=== PATIENT | female | born 1960 | race Caucasian/White ===

== ENCOUNTER → 2018-01-02 | Outpatient (CLI) | payer OTHER ==
[2018-01-02 19:18] LABS: Basophils % (A) 0 %; Eosinophils # (A) 0.1 k/uL (0-0.7); Eosinophils % (A) 1 %; HCT 41.8 % (34.0-46.0); HGB 13.2 gm/dL (11.4-16.0); Lymphocytes # (A) 1.3 k/uL (1.0-4.8); Lymphocytes % (A) 13 %; MCH 31.1 pg (25.0-35.0); MCHC 31.4 g/dL (31.0-37.0); MCV 98.8 fL (80.0-100.0); Mean Platelet Volume 6.9; Monocytes # (A) 0.4 k/uL (0-1.0); Monocytes % (A) 4 %; Neutrophils # (A) 7.4 k/uL (1.3-7.7); Neutrophils % (A) 80 %; Platelet Count 432 k/uL (150-450); RBC 4.23 m/uL (3.80-5.40); RDW 13.5 % (11.5-15.5); WBC 9.3 k/uL (3.8-10.6)
[2018-01-02 23:02] LABS: ALT 28 U/L (9-52); AST 20 U/L (14-36); Alkaline Phosphatase 102 U/L (38-126); Amylase 61 U/L (30-110); Anion Gap 10 mmol/L; Blood Urea Nitrogen 18 mg/dL (7-17); Calcium 9.6 mg/dL (8.4-10.2); Carbon Dioxide 31 mmol/L (22-30); Chloride 96 mmol/L (98-107); Cholesterol 250 mg/dL (<200); Glucose 192 mg/dL (74-99); Lipase 151 U/L (23-300); Potassium 4.4 mmol/L (3.5-5.1); Sodium 137 mmol/L (137-145); Theophylline 6.8 ug/mL; Total Bilirubin 0.3 mg/dL (0.2-1.3); Total Protein 6.9 g/dL (6.3-8.2); Triglycerides 260 mg/dL (<150)
[2018-01-02 23:09] LABS: HDL Cholesterol 130 mg/dL (40-60); LDL Cholesterol,Calculated 68 mg/dL (0-99)
[2018-01-02 23:16] LABS: T4, Free (Free Thyroxine) 0.81 ng/dL (0.78-2.19)
[2018-01-03 19:09] LABS: Hemoglobin A1C 7.3 % (4.0-6.0)
== END | disposition home or self-care (01) ==
LOC: MMGSC 15:08
PROVIDERS: ATTEND Family Medicine
DX: J44.9 Chronic obstructive pulmonary disease, unspecified (principal); R10.9 Unspecified abdominal pain; R00.0 Tachycardia, unspecified; R73.09 Other abnormal glucose; Z86.79 Personal history of other diseases of the circulatory system
CPT/HCPCS: 36415; 80053; 80061; 80198; 82150; 83036; 83690; 84439; 84443; 85025; 99204

== ENCOUNTER → 2018-09-19 | Outpatient (CLI) | payer OTHER ==
--- NOTE | 2018-09-19 11:00 | CT ---
EXAMINATION TYPE: CT chest wo con DATE OF EXAM: 09/19/2018 COMPARISON: None HISTORY: Pulmonary Nodule CT DLP: 131 mGycm, Automated exposure control for dose reduction was used. CONTRAST: None TECHNIQUE: Axial images were obtained at 5 mm thick sections. Reconstructed images are reviewed on [employer] computer in the coronal plane. FINDINGS: Portion of the thyroid visualized is normal. Bilateral apical thickening is present. Emphysematous changes are present. Multiple small peripheral nodules in the range of 2 mm each are present along the anterior peripheral margins. There is a area of increased density measuring approximately 0.6 cm in the periphery of the left upper lobe. Series 4 image 15. Some calcified small nodules are present scattered bilaterally. No enlarged mediastinal or hilar adenopathy is evident. The ascending aorta diameter at the level o f the main pulmonary artery is 2.7 cm. The main pulmonary artery diameter at the bifurcation is 2.2 cm. Coronary artery calcification is present. Limited CT sections are obtained through the upper abdomen. Abdomen is essentially unremarkable. IMPRESSIONS: 1. 0.6 cm area of pneumonitis within the periphery of the left upper lung field. Follow-up exam in 6 months is recommended. 2. Multiple 2 mm peripheral nodules bilaterally. Scattered bilateral calcified nodules are also prese nt.
== END ==
LOC: RADCTMAIN 08:15
PROVIDERS: ATTEND Internal Medicine Pulmonary Disease
DX: J18.9 Pneumonia, unspecified organism (principal); R91.8 Other nonspecific abnormal finding of lung field
CPT/HCPCS: 71250

== ENCOUNTER → 2019-04-27 | Outpatient (CLI) | payer OTHER ==
--- NOTE | 2019-04-27 12:16 | CT ---
EXAMINATION TYPE: CT chest wo con DATE OF EXAM: 04/27/2019 COMPARISON: 09/19/2018 HISTORY: Follow up scan per patient CT DLP: 152 mGycm. Automated Exposure Control for Dose Reduction was Utilized. TECHNIQUE: CT scan of the thorax is performed without IV contrast. FINDINGS: LUNGS: Bilateral apical thickening is present. Emphysematous changes are present. Multiple small nam pheral nodules in the range of 2 mm each are present along the anterior peripheral margins. There is a area of increased density measuring approximately 0.6 cm in the periphery of the left upper lobe. S eries 4 image 15. Some calcified small nodules are present scattered bilaterally. . MEDIASTINUM: Lack of IV contrast is noted to limit evaluation for mediastinal and especially hilar ad enopathy. There are no definitive greater than 1 cm hilar or mediastinal lymph nodes. Heart is mildly prominent and there is a trace of pericardial fluid. The ascending aorta diameter at the level of th e main pulmonary artery is 2.7 cm. The main pulmonary artery diameter at the bifurcation is 2.2 cm. C oronary artery calcification is present. OTHER: Multilevel severe degenerative disc disease with vacuum disc. Chronic appearing endplate compr ession deformities are seen within the lower thoracic spine. Chronic appearing rib cage deformities o n the left are noted. IMPRESSION: 1. There are numerous subcentimeter bilateral pulmonary nodules large number of which are calcified. Findings stable. Most likely etiology is calcified and noncalcified granulomas. Confirmation of stabi lity over 2 years recommended. 2. Diffuse emphysematous changes correlate for chronic obstructive pulmonary disease. 3. Stable apical pleural thickening.
== END | disposition home or self-care (01) ==
LOC: RADCTMAIN 11:43
PROVIDERS: ATTEND Internal Medicine
DX: J43.9 Emphysema, unspecified (principal); J92.9 Pleural plaque without asbestos; R91.8 Other nonspecific abnormal finding of lung field
CPT/HCPCS: 71250

== ENCOUNTER → 2019-07-22 | Outpatient (CLI) | payer OTHER ==
--- NOTE | 2019-07-23 04:20 | FL ---
EXAMINATION: Upper GI with small bowel follow through DATE: 07/22/2019 CLINICAL INDICATION: 59-year-old female epigastric pain with nausea and vomiting for one year. Prior history of gastric ulcer. Patient also with history of partial colonic resection with colostomy and r eversal and 2 prior bowel obstructions. COMPARISON: None Total Fluoroscopy Time: 3 minutes 25 seconds Total images: 62 FINDINGS: The esophagus has a normal course, caliber, and mucosa. There are mildly blunted secondary stripping waves allowing for slightly prolonged pooling of contras t when the patient is supine. There is a small hiatal hernia seen. There is no gastroesophageal reflux identified. There is mild gastric fundal fold thickening. Otherwise, the stomach and duodenum are free of any per sistent filling defect and the remainder of the stomach and duodenum demonstrates a normal mucosal pa ttern. No ulcer is identified. Following administration of barium, serial films were carried out to 30 minutes. Barium is seen to re ach the colon. Loops of jejunum and ileum are compressed and examined under fluoroscopy. The small alicia wel loops have a normal-caliber. Mucosal pattern is within normal limits. No intrinsic or extrinsic p rocess is suspected. IMPRESSION: 1. Mild dysmotility with blunted secondary stripping waves allowing for prolonged pooling of contrast in the esophagus when the patient is supine. 2. Small hiatal hernia. No gastroesophageal reflux is seen during the course of the exam. 3. Mild gastric fundal fold thickening may reflect mild gastritis. No discrete ulcer is seen. 4. Borderline fast small bowel transit time of 30 minutes. Otherwise, normal small bowel examination
== END | disposition home or self-care (01) ==
LOC: RADFLMAIN 08:37
PROVIDERS: ATTEND Internal Medicine Gastroenterology
DX: K22.4 Dyskinesia of esophagus (principal); K44.9 Diaphragmatic hernia without obstruction or gangrene; K31.89 Other diseases of stomach and duodenum
CPT/HCPCS: 74249

== ENCOUNTER 2020-01-12 10:58 | Inpatient (IN) | payer OTHER ==
[2020-01-12] MEDS ORDERED: methylPREDNISolone SOD SUCCI 125 MG/2 ML VIAL IV STA (11:27)
[2020-01-12] MEDS ORDERED: IPRATROPIUM-ALBUTEROL 3 ML NEB INHALATION STA (11:27)
[2020-01-12 12:04] LABS: Partial Thromboplastin Time 25.6 sec (22.0-30.0); Prothrombin Time 10.2 sec (9.0-12.0)
[2020-01-12 12:06] LABS: ALT 10 U/L (4-34); AST 18 U/L (14-36); African American GFR (CKD) >90 (>60 ml/min/1.73 sqM); Albumin 3.5 g/dL (3.5-5.0); Alkaline Phosphatase 54 U/L (38-126); Blood Urea Nitrogen 13 mg/dL (7-17); Calcium 8.6 mg/dL (8.4-10.2); Chloride 92 mmol/L (98-107); Glucose 118 mg/dL (74-99); Magnesium 1.6 mg/dL (1.6-2.3); Non-African American GFR(CKD) >90 (>60 ml/min/1.73 sqM); Potassium 4.2 mmol/L (3.5-5.1); Sodium 138 mmol/L (137-145); Total Bilirubin 0.6 mg/dL (0.2-1.3)
[2020-01-12 12:10] LABS: HCT 33.9 % (34.0-46.0); HGB 10.1 gm/dL (11.4-16.0); Hypochromasia Marked; MCH 31.3 pg (25.0-35.0); MCHC 29.9 g/dL (31.0-37.0); MCV 104.7 fL (80.0-100.0); Macrocytosis Slight; Platelet Count 319 k/uL (150-450); RBC 3.24 m/uL (3.80-5.40); RDW 12.3 % (11.5-15.5); WBC 5.2 k/uL (3.8-10.6)
[2020-01-12 12:12] LABS: Anion Gap 8 mmol/L
[2020-01-12] MEDS ORDERED: traMADol 50 MG TAB PO STA (12:15)
[2020-01-12 12:16] LABS: VBG PH 7.41 (7.31-7.41)
[2020-01-12 12:17] LABS: Carbon Dioxide 38 mmol/L (22-30)
[2020-01-12 12:36] LABS: Band Neutrophils % 1 %; Lymphocytes # (M) 0.78 k/uL (1.0-4.8); Monocytes # (M) 0.42 k/uL (0-1.0); Neutrophils % (M) 74 %; Nucleated Red Blood Cells 0 /100 WBC (0-0); Total Cells Counted 100
[2020-01-12 12:37] LABS: Poikilocytosis (M) Present
--- NOTE | 2020-01-12 12:41 | ED ---
General Adult HPI - General Chief complaint: Shortness of Breath Stated complaint: MARLA Time Seen by Provider: 01/12/20 11:13 Source: patient, EMS, RN notes reviewed Mode of arrival: EMS Limitations: no limitations - History of Present Illness Initial comments: 59-year-old female with a past medical history of COPD on home oxygen presents to the emergency department for a chief complaint of shortness of breath. Patient states yesterday she started to develop increased shortness of breath. Patient states that usually she is on 2 L when she is resting at home and 4 L when she is moving. Patient also admits to a slight cough over the past few days. She denies any chest pain. She denies fevers or chills. Patient has no other complaints at this time including shortness of breath, chest pain, abdominal pain, nausea or vomiting, headache, or visual changes. - Related Data Allergies Allergy/AdvReac Type Severity Reaction Status Date / Time No Known Allergies Allergy Verified 01/12/20 11:00 Review of Systems ROS Statement: Those systems with pertinent positive or pertinent negative responses have been documented in the HPI. ROS Other: All systems not noted in ROS Statement are negative. Past Medical History Past Medical History: COPD History of Any Multi-Drug Resistant Organisms: None Reported Additional Past Surgical History / Comment(s): "abdominal surgeries." Past Psychological History: Anxiety Smoking Status: Never smoker Past Alcohol Use History: None Reported Past Drug Use History: None Reported General Exam Limitations: no limitations General appearance: alert, in no apparent distress Head exam: Present: atraumatic, normocephalic, normal inspection Eye exam: Present: normal appearance, PERRL, EOMI. Absent: scleral icterus, conjunctival injection, periorbital swelling ENT exam: Present: normal exam, mucous membranes moist Neck exam: Present: normal inspection, full ROM. Absent: tenderness, meningismus, lymphadenopathy Respiratory exam: Present: wheezes, decreased breath sounds. Absent: respiratory distress, rales, rhonchi, stridor Cardiovascular Exam: Present: regular rate, normal rhythm, normal heart sounds. Absent: systolic murmur, diastolic murmur, rubs, gallop, clicks Neurological exam: Present: alert Psychiatric exam: Present: normal affect, normal mood Course Vital Signs 01/12/20 01/12/20 01/12/20 11:01 11:15 11:55 Temperature 97.2 F L Pulse Rate 102 H 100 Respiratory 18 Rate Blood Pressure 148/67 O2 Sat by Pulse 100 98 78 L Oximetry 01/12/20 01/12/20 01/12/20 12:00 12:10 12:20 Temperature Pulse Rate 102 H 105 H Respiratory 20 Rate Blood Pressure 129/91 O2 Sat by Pulse 98 99 Oximetry EKG Findings - EKG Comments: EKG Findings:: Normal sinus rhythm, ventricular rate 100, NC interval 140, QTC 456 Medical Decision Making - Medical Decision Making Vitals are stable presentation. Patient is 100% on 4 L although it seems she is supposed to be on 2 L at home at rest. She does have some minimal tachycardia likely related to shortness of breath. Lung sounds do sound diminished with wheezing bilaterally. Patient was on 2 L of oxygen and apparently desatted to 78% so she was increased back to 4 L. CBC unremarkable. White blood cell count is normal. CMP does show high CO2 which is likely chronic but increased compared to previous labs. Influenza is negative. Chest x-ray shows COPD with some subcentimeter pulmonary nodules most likely on the basis of granuloma. Patient will be admitted for acute hypoxic respiratory failure secondary to COPD exacerbation. - Lab Data Result diagrams: 01/12/20 11:07 01/12/20 11:07 Lab Results 01/12/20 01/12/20 01/12/20 Range/Units 11:07 11:07 11:07 WBC 5.2 (3.8-10.6) k/uL RBC 3.24 L (3.80-5.40) m/uL Hgb 10.1 L (11.4-16.0) gm/dL Hct 33.9 L (34.0-46.0) % MCV 104.7 H (80.0-100.0) fL MCH 31.3 (25.0-35.0) pg MCHC 29.9 L (31.0-37.0) g/dL RDW 12.3 (11.5-15.5) % Plt Count 319 (150-450) k/uL Neutrophils % (Manual) 74 % Band Neutrophils % 1 % Lymphocytes % (Manual) 15 % Monocytes % (Manual) 8 % Eosinophils % (Manual) 2 % Neutrophils # (Manual) 3.90 (1.3-7.7) k/uL Lymphocytes # (Manual) 0.78 L (1.0-4.8) k/uL Monocytes # (Manual) 0.42 (0-1.0) k/uL Eosinophils # (Manual) 0.10 (0-0.7) k/uL Nucleated RBCs 0 (0-0) /100 WBC Manual Slide Review Performed Hypochromasia Marked Poikilocytosis (manual Present Macrocytosis Slight PT 10.2 (9.0-12.0) sec INR 1.0 (<1.2) APTT 25.6 (22.0-30.0) sec VBG pH (7.31-7.41) VBG pCO2 (37-51) mmHg VBG HCO3 (24-28) mmol/L Sodium 138 (137-145) mmol/L Potassium 4.2 (3.5-5.1) mmol/L Chloride 92 L (98-107) mmol/L Carbon Dioxide 38 H (22-30) mmol/L Anion Gap 8 mmol/L BUN 13 (7-17) mg/dL Creatinine 0.35 L (0.52-1.04) mg/dL Est GFR (CKD-EPI)AfAm >90 (>60 ml/min/1.73 sqM) Est GFR (CKD-EPI)NonAf >90 (>60 ml/min/1.73 sqM) Glucose 118 H (74-99) mg/dL Calcium 8.6 (8.4-10.2) mg/dL Magnesium 1.6 (1.6-2.3) mg/dL Total Bilirubin 0.6 (0.2-1.3) mg/dL AST 18 (14-36) U/L ALT 10 (4-34) U/L Alkaline Phosphatase 54 (38-126) U/L Troponin I (0.000-0.034) ng/mL Total Protein 6.0 L (6.3-8.2) g/dL Albumin 3.5 (3.5-5.0) g/dL Influenza Type A RNA (Not Detectd) Influenza Type B (PCR) (Not Detectd) 01/12/20 01/12/20 01/12/20 Range/Units 11:07 11:07 12:06 WBC (3.8-10.6) k/uL RBC (3.80-5.40) m/uL Hgb (11.4-16.0) gm/dL Hct (34.0-46.0) % MCV (80.0-100.0) fL MCH (25.0-35.0) pg MCHC (31.0-37.0) g/dL RDW (11.5-15.5) % Plt Count (150-450) k/uL Neutrophils % (Manual) % Band Neutrophils % % Lymphocytes % (Manual) % Monocytes % (Manual) % Eosinophils % (Manual) % Neutrophils # (Manual) (1.3-7.7) k/uL Lymphocytes # (Manual) (1.0-4.8) k/uL Monocytes # (Manual) (0-1.0) k/uL Eosinophils # (Manual) (0-0.7) k/uL Nucleated RBCs (0-0) /100 WBC Manual Slide Review Hypochromasia Poikilocytosis (manual Macrocytosis PT (9.0-12.0) sec INR (<1.2) APTT (22.0-30.0) sec VBG pH 7.41 (7.31-7.41) VBG pCO2 63 H (37-51) mmHg VBG HCO3 39 H (24-28) mmol/L Sodium (137-145) mmol/L Potassium (3.5-5.1) mmol/L Chloride (98-107) mmol/L Carbon Dioxide (22-30) mmol/L Anion Gap mmol/L BUN (7-17) mg/dL Creatinine (0.52-1.04) mg/dL Est GFR (CKD-EPI)AfAm (>60 ml/min/1.73 sqM) Est GFR (CKD-EPI)NonAf (>60 ml/min/1.73 sqM) Glucose (74-99) mg/dL Calcium (8.4-10.2) mg/dL Magnesium (1.6-2.3) mg/dL Total Bilirubin (0.2-1.3) mg/dL AST (14-36) U/L ALT (4-34) U/L Alkaline Phosphatase (38-126) U/L Troponin I <0.012 (0.000-0.034) ng/mL Total Protein (6.3-8.2) g/dL Albumin (3.5-5.0) g/dL Influenza Type A RNA Not Detected (Not Detectd) Influenza Type B (PCR) Not Detected (Not Detectd) Disposition Clinical Impression: COPD exacerbation, Acute respiratory failure with hypoxia Disposition: ADMITTED IP TO THIS HOSP Condition: Fair Is patient prescribed a controlled substance at d/c from ED?: No Referrals: Khanh Caban MD [Primary Care Provider] - 1-2 days Time of Disposition: 13:26
--- NOTE | 2020-01-12 13:06 | XR ---
EXAMINATION TYPE: XR chest 2V DATE OF EXAM: 01/12/2020 COMPARISON: NONE TECHNIQUE: PA and lateral views submitted. HISTORY: Difficulty breathing FINDINGS: The lungs are clear and there is no pneumothorax, pleural effusion, or focal pneumonia. Hyperinflati on suggests COPD. Degenerative changes spine. There are nodular densities suggestive of calcified gra nuloma. Previous CT demonstrated multiple calcified and noncalcified nodule sclerotic density overlyi ng the humeral head could represent a bone island. Biapical pleural thickening. Heart size normal. Di ffuse osteopenia. IMPRESSION: 1. COPD with some subcentimeter pulmonary nodules most likely on the basis of granuloma as reported b y previous CT scan. 2. Coarsened interstitium can be associated with chronic interstitial lung disease correlate clinical ly.
[2020-01-12] MEDS ORDERED: SODIUM CHLORIDE 0.9% 1,000 ML IV STA (13:28)
[2020-01-12] MEDS ORDERED: cefTRIAXone IN SWFI 1,000 MG/10 ML SYRINGE IVP STA (14:43)
[2020-01-12] MEDS ORDERED: AZITHROMYCIN 500 MG in SODIUM CHLORIDE 0.9% 250 ML IVPB STA (14:43)
[2020-01-12] MEDS ORDERED: MAG HYDROX/AL HYDROX/SIMETH 30 ML CUP PO PRN (15:54)
--- NOTE | 2020-01-12 15:58 | P.HPIM ---
History of Present Illness H&P Date: 01/12/20 Chief Complaint: Difficulty breathing 59-year-old female with history of COPD on home oxygen 2-4 L per nasal cannula Patient comes in with 1-2 day history of worsening shortness of breath she reports that her inhalers and nebulizers are not helping with her symptoms. She reports the last hospitalization for trouble breathing was within 1 year but she has not been intubated over the past year. She denies any fevers or chills she denies any sick contacts or recent traveling. She denies any upper respiratory symptoms of runny nose sore throat. She reports chronic cough nonproductive. She denies any fevers or chills. She denies any chest pain. Her son recommended to her that she gets evaluated because she started using the oxygen more than her usual usage of occasional 2 L now she is using 4 L nasal cannula despite that she's not getting much improvement and relief in her breathing. For which she decided to come to the hospital for evaluation An the ED chest x-ray failed to show any clear infiltrations suggestive of pneumonia. Showed old ground glass appearance which is compatible compared to her older CAT scan. Patient was tachycardic and hypoxic in the ED. Blood work showed chronic anemia but no leukocytosis ABG showed elevated CO2. Patient didn't improve much after multiple breathing treatments in the ED she will be admitted for acute COPD exacerbation Patient also admitted that she is complaining of chronic epigastric abdominal pain she felt frustrated about it, she reported that the pain has been going on for over a year now she has seen multiple doctors for that including a GI specialist and again she claims that nothing has been helping and no one seems to care enough to do anything about it Review of Systems Pertinent positives as noted in HPI. All other systems were reviewed and are negative Past Medical History Past Medical History: COPD History of Any Multi-Drug Resistant Organisms: None Reported Additional Past Surgical History / Comment(s): "abdominal surgeries." Past Psychological History: Anxiety Smoking Status: Never smoker Past Alcohol Use History: None Reported Past Drug Use History: None Reported - Past Family History Family Family Medical History: No Reported History Medications and Allergies Allergies Allergy/AdvReac Type Severity Reaction Status Date / Time No Known Allergies Allergy Verified 01/12/20 15:47 Physical Exam Vitals: Vital Signs Temp Pulse Resp BP Pulse Ox 01/12/20 13:36 114 H 28 H 151/88 98 01/12/20 12:20 105 H 20 129/91 99 01/12/20 12:10 102 H 01/12/20 12:00 98 01/12/20 11:55 100 78 L 01/12/20 11:15 98 01/12/20 11:01 97.2 F L 102 H 18 148/67 100 Intake and Output 01/11/20 01/12/20 01/12/20 22:59 06:59 14:59 Other: Weight 50.802 kg Constitutional: No acute distress, conversant, pleasant Eyes: Anicteric sclerae, moist conjunctiva, Pupils equal round reactive to light ENMT: NC/AT Oropharynx clear, no erythema, exudates Neck: Supple, FROM, no masses, or JVD No carotid bruits No thyromegaly Lungs: Diminished breath sounds throughout prolonged expiratory phase Clear to percussion Respiratory distress with accessory muscle use Cardiovascular: Heart regular in rate and rhythm, No murmurs, gallops, or rubs No peripheral edema Abdominal: Soft Epigastric discomfort to deep palpation, no guarding, rebound or rigidity Abdomen moving with respiration Normoactive bowel sounds No hepatomegaly, No splenomegaly No palpable mass No abdominal wall hernia noted Skin: Normal temperature, tone, texture, turgor No induration No subcutaneous nodules No rash, lesions No ulcers Extremities: No digital cyanosis No clubbing Pedal pulses intact and symmetrical Radial pulses intact and symmetrical No calf tenderness Psychiatric: Alert and oriented to person, place and time Appropriate affect fair judgement Neuro Muscles Strength 4/5 in all 4 extremities Sensation to light touch grossly present throughout Cranial nerves II-XII grossly intact No focal sensory deficits Lymphatics: no palpable cervical or supraclavicular , or inguinal lymph nodes Results CBC & Chem 7: 01/12/20 11:07 01/12/20 11:07 Labs: Abnormal Lab Results - Last 24 Hours (Table) 01/12/20 01/12/20 01/12/20 Range/Units 11:07 11:07 12:06 RBC 3.24 L (3.80-5.40) m/uL Hgb 10.1 L (11.4-16.0) gm/dL Hct 33.9 L (34.0-46.0) % MCV 104.7 H (80.0-100.0) fL MCHC 29.9 L (31.0-37.0) g/dL Lymphocytes # (Manual) 0.78 L (1.0-4.8) k/uL VBG pCO2 63 H (37-51) mmHg VBG HCO3 39 H (24-28) mmol/L Chloride 92 L (98-107) mmol/L Carbon Dioxide 38 H (22-30) mmol/L Creatinine 0.35 L (0.52-1.04) mg/dL Glucose 118 H (74-99) mg/dL Total Protein 6.0 L (6.3-8.2) g/dL Assessment and Plan Assessment: 59-year-old female with COPD on home oxygen 2-4 L comes in due to worsening shortness of breath over the past 1-2 days denies any upper respiratory infection like symptoms. In the ED she was found to be hypoxic and tachycardic despite repeated breathing treatments patient didn't make much improvement she is admitted for acute COPD exacerbation with anticipated length of stay more than two midnight Plan: Acute hypoxic hypercapnic respiratory failure secondary to acute COPD exacerbation COPD pathway systemic IV steroids, doxycycline, nebulizers inhalers when necessary CPT supplemental oxygen as needed influenza negative BIpap PRN 10/5 epigastric abd pain PPI maalox check lipase GI consult DVT PPX sc heparin tid chronic anemia macrocytic check B 12 , RBC folate CODE STATUS: no code Discussed with: Patient, ER, rn Anticipated length of stay > than [address]: home A total of 60 minutes was spent on the care of this complex patient more than 50% of the time was spent in counseling and care coordination.
[2020-01-12] MEDS ORDERED: LORazepam 0.5 MG TAB PO PRN (16:23)
[2020-01-12] MEDS: IPRATROPIUM-ALBUTEROL 3 ML NEB INHALATION PRN ×2 (16:33→20:29)
[2020-01-12 17:20] LABS: Glucose,Whole Blood 144 mg/dL (75-99)
[2020-01-12] MEDS: DILTIAZEM CD 240 MG CAP.ER.24H PO SCH (17:20)
[2020-01-12] MEDS: ATENOLOL 25 MG TAB PO SCH ×2 (17:21→19:30)
[2020-01-12] MEDS: PANTOPRAZOLE 40 MG TABLET PO SCH (17:21)
[2020-01-12] MEDS: HEPARIN SODIUM,PORCINE 5,000 UNIT/ML 1 ML VIAL SQ SCH ×2 (17:21→23:18)
[2020-01-12] MEDS: methylPREDNISolone SOD SUCCI 125 MG/2 ML VIAL IV SCH ×2 (17:21→23:18)
[2020-01-12] MEDS: LORazepam 0.5 MG TAB PO PRN (17:21)
[2020-01-12] MEDS: HYDROcodone/APAP 10-325MG 1 EACH TAB PO PRN (18:58)
[2020-01-12] MEDS: MONTELUKAST 10 MG TAB PO SCH (19:31)
[2020-01-12] MEDS: metFORMIN 500 MG TAB PO SCH (19:31)
[2020-01-12 20:13] LABS: Glucose,Whole Blood 191 mg/dL (75-99)
[2020-01-12] MEDS ORDERED: ATENOLOL 25 MG TAB PO SCH (21:00)
[2020-01-12] MEDS ORDERED: LORazepam 0.5 MG TAB PO SCH (22:00)
[2020-01-13] MEDS: HYDROcodone/APAP 10-325MG 1 EACH TAB PO PRN ×3 (04:15→18:19)
[2020-01-13] MEDS: IPRATROPIUM-ALBUTEROL 3 ML NEB INHALATION PRN (04:36)
[2020-01-13] MEDS: methylPREDNISolone SOD SUCCI 125 MG/2 ML VIAL IV SCH ×4 (05:52→23:07)
[2020-01-13 07:00] LABS: Glucose,Whole Blood 177 mg/dL (75-99)
[2020-01-13] MEDS: LORazepam 0.5 MG TAB PO PRN ×2 (08:44→18:19)
[2020-01-13] MEDS: ATENOLOL 25 MG TAB PO SCH ×2 (08:44→20:19)
[2020-01-13] MEDS: ESCITALOPRAM 20 MG TAB PO SCH (08:45)
[2020-01-13] MEDS: DILTIAZEM CD 240 MG CAP.ER.24H PO SCH (08:45)
[2020-01-13] MEDS: AZITHROMYCIN 250 MG TAB PO SCH (08:45)
[2020-01-13] MEDS: PANTOPRAZOLE 40 MG TABLET PO SCH ×2 (08:45→18:19)
[2020-01-13] MEDS: INSULIN ASPART (NovoLOG) 100 UNIT/ML VIAL SQ SCH ×4 (08:46→20:22)
[2020-01-13] MEDS: HEPARIN SODIUM,PORCINE 5,000 UNIT/ML 1 ML VIAL SQ SCH ×3 (08:47→23:07)
[2020-01-13] MEDS: POLYETHYLENE GLYCOL 3350 17 GM POWD.PACK PO SCH (08:47)
[2020-01-13] MEDS: IPRATROPIUM 0.5 MG/2.5 ML NEBU INHALATION SCH ×4 (08:54→19:10)
[2020-01-13] MEDS ORDERED: NON FORMULARY DRUG (Aspirin Ec 81 MG) PO SCH (09:00)
[2020-01-13] MEDS ORDERED: DILTIAZEM CD 240 MG CAP.ER.24H PO SCH (09:00)
[2020-01-13] MEDS ORDERED: ONDANSETRON ODT 4 MG TAB PO PRN (09:00)
[2020-01-13] MEDS ORDERED: PANTOPRAZOLE 40 MG TABLET PO SCH (09:00)
[2020-01-13 09:46] LABS: African American GFR (CKD) >90 (>60 ml/min/1.73 sqM); Anion Gap 8 mmol/L; Blood Urea Nitrogen 16 mg/dL (7-17); Calcium 8.8 mg/dL (8.4-10.2); Carbon Dioxide 35 mmol/L (22-30); Chloride 94 mmol/L (98-107); Glucose 186 mg/dL (74-99); Non-African American GFR(CKD) >90 (>60 ml/min/1.73 sqM); Potassium 4.6 mmol/L (3.5-5.1); Sodium 137 mmol/L (137-145)
[2020-01-13] MEDS ORDERED: DOCUSATE 100 MG CAP PO PRN (10:14)
--- NOTE | 2020-01-13 10:14 | P.PN ---
Subjective Progress Note Date: 01/13/20 Principal diagnosis: follow up for acute COPD exacerbation Patient seen and examined still reporting difficulty breathing and some component of anxiety Denies any chest pain Denies any nausea vomiting , she is still having epigastric discomfort Objective - Vital Signs Vital signs: Vital Signs Temp 97.9 F 01/13/20 07:42 Pulse 88 01/13/20 09:05 Resp 14 01/13/20 08:00 BP 147/81 01/13/20 07:42 Pulse Ox 98 01/13/20 07:42 Intake & Output 01/12/20 01/13/20 01/13/20 18:59 06:59 18:59 Intake Total 960 Balance 960 Weight 50.802 kg Intake: Intake, IV Titration 900 Amount Sodium Chloride 0.9% 1, 900 000 ml @ 75 mls/hr IV . [id number] STA Rx#:[id number] Oral 60 Other: Voiding Method Bedside Commode Bedside Commode # Voids 2 - Exam Constitutional: vital signs stable, Not in acute distress, pleasant, conversant Lungs: Diminished breath sounds throughout, patient using accessory muscles of respiration Cardiovascular: Regular rate and rhythm, no murmurs, no gallops, no rubs, no peripheral edema Gastrointestinal: Soft, no tenderness to palpation, bowel sounds positive Extremities: No digital cyanosis or clubbing, peripheral pulses palpable and equal , no calf muscle tenderness Psych: Alert, oriented to place, person and time, appropriate affect, intact judgment - Labs CBC & Chem 7: 01/12/20 11:07 01/13/20 09:08 Labs: Abnormal Lab Results - Last 24 Hours (Table) 01/12/20 01/12/20 01/12/20 Range/Units 11:07 11:07 12:06 RBC 3.24 L (3.80-5.40) m/uL Hgb 10.1 L (11.4-16.0) gm/dL Hct 33.9 L (34.0-46.0) % MCV 104.7 H (80.0-100.0) fL MCHC 29.9 L (31.0-37.0) g/dL Lymphocytes # (Manual) 0.78 L (1.0-4.8) k/uL VBG pCO2 63 H (37-51) mmHg VBG HCO3 39 H (24-28) mmol/L Chloride 92 L (98-107) mmol/L Carbon Dioxide 38 H (22-30) mmol/L Creatinine 0.35 L (0.52-1.04) mg/dL Glucose 118 H (74-99) mg/dL POC Glucose (mg/dL) (75-99) mg/dL Total Protein 6.0 L (6.3-8.2) g/dL 01/12/20 01/12/20 01/13/20 Range/Units 17:19 20:11 06:58 RBC (3.80-5.40) m/uL Hgb (11.4-16.0) gm/dL Hct (34.0-46.0) % MCV (80.0-100.0) fL MCHC (31.0-37.0) g/dL Lymphocytes # (Manual) (1.0-4.8) k/uL VBG pCO2 (37-51) mmHg VBG HCO3 (24-28) mmol/L Chloride (98-107) mmol/L Carbon Dioxide (22-30) mmol/L Creatinine (0.52-1.04) mg/dL Glucose (74-99) mg/dL POC Glucose (mg/dL) 144 H 191 H 177 H (75-99) mg/dL Total Protein (6.3-8.2) g/dL 01/13/20 Range/Units 09:08 RBC (3.80-5.40) m/uL Hgb (11.4-16.0) gm/dL Hct (34.0-46.0) % MCV (80.0-100.0) fL MCHC (31.0-37.0) g/dL Lymphocytes # (Manual) (1.0-4.8) k/uL VBG pCO2 (37-51) mmHg VBG HCO3 (24-28) mmol/L Chloride 94 L (98-107) mmol/L Carbon Dioxide 35 H (22-30) mmol/L Creatinine 0.35 L (0.52-1.04) mg/dL Glucose 186 H (74-99) mg/dL POC Glucose (mg/dL) (75-99) mg/dL Total Protein (6.3-8.2) g/dL Assessment and Plan Assessment: 59-year-old female with COPD on home oxygen 2-4 L comes in due to worsening shortness of breath over the past 1-2 days denies any upper respiratory infection like symptoms. In the ED she was found to be hypoxic and tachycardic despite repeated breathing treatments patient didn't make much improvement she is admitted for acute COPD exacerbation 01/13 Patient still having respiratory distress slightly improving with breathing treatments she feels tight Denies any fevers or chills Denies any nausea vomiting or chest pain Plan: Acute hypoxic hypercapnic respiratory failure secondary to acute COPD exacerbation COPD pathway systemic IV steroids, doxycycline, nebulizers inhalers when necessary CPT supplemental oxygen as needed influenza negative BIpap PRN 08/29 encouraged patient to bring her own cpap epigastric abd pain PPI maalox lipase normal GI consult DVT PPX sc heparin tid chronic anemia macrocytic low normal vitamin B12 level replace with IM vitamin b12 patient uses CPAP at home, encouraged her to bring it , she does not know her settings
[2020-01-13 10:26] LABS: Basophils % (A) 0 %; Eosinophils % (A) 1 %; HCT 32.6 % (34.0-46.0); HGB 10.3 gm/dL (11.4-16.0); Hypochromasia Slight; Lymphocytes # (A) 0.3 k/uL (1.0-4.8); Lymphocytes % (A) 9 %; MCH 32.2 pg (25.0-35.0); MCHC 31.6 g/dL (31.0-37.0); MCV 101.9 fL (80.0-100.0); Mean Platelet Volume 7.4; Monocytes # (A) 0.1 k/uL (0-1.0); Monocytes % (A) 2 %; Neutrophils # (A) 2.9 k/uL (1.3-7.7); Neutrophils % (A) 87 %; Platelet Count 346 k/uL (150-450); RDW 12.4 % (11.5-15.5); WBC 3.3 k/uL (3.8-10.6)
[2020-01-13 11:10] LABS: Glucose,Whole Blood 151 mg/dL (75-99)
[2020-01-13] MEDS: metFORMIN 500 MG TAB PO SCH (11:10)
[2020-01-13] MEDS: LINACLOTIDE 72 MCG PO SCH (11:43)
--- NOTE | 2020-01-13 13:31 | P.CNPUL ---
History of Present Illness Consult date: 01/13/20 Reason for consult: dyspnea, COPD History of present illness: Lorazepam 9-year-old female patient is well-known to me. I taking care of her in the past. She has moved from [place] to [place] and she was hospitalized for COPD exacerbation back in 2018.. She is a known case of COPD and she has chronic hypoxic respiratory failure. She has had multiple hospitalizations in the past for COPD exacerbation and she can recall at least hospitalization over the past several years. She has required steroids due to her chronic steroid use she has developed steroids induced cushingoid features. She has been on on long-term steroid use and she was taking 5 mg of by mouth steroids on a daily basis. She has been maintained on DuoNeb neb last treatment [id number] and typically she uses it up to 4 times a day. She is also on oxygen and she also has a Incruse modulation day and Pulmicort and inhalers 1 puff twice a day. Her previous spirometer was on a division operations manager office from 2016 from [place] showed an FEV1 of 19% of predicted. The patient is not smoking cigarettes for now. She quit smoking in 2012. She is diabetic. The patient came into the hospital yesterday for a few days worth of increased shortness of breath. She stated that inhalers and a nebulizer were not helping. She was Hospital as for increased shortness of breath. Apparently she denies having any fever or chills. She denied having any sick contacts. She has been exposed to secondhand smoking through other people will live with her. The merari ent came into the ED. Chest x-ray showed emphysema without any acute airspace disease. ABGs showed a pH of 7.41 with a pCO2 of 63 and pO2 of 39. I think this was a venous sample. Her white cell, was at 3.3 with a hemoglobin of 10.3. Normal coagulation profile. The blood work showed metabolic alkalosis consistent with chronic hypercapnic respiratory failure. The last CAT scan of the chest was done in April 2019. The patient back then showed diffuse emphysematous change and numerous subcentimeter bilateral pulmonary nodules with calcification and this was attributed to her previous chickenpox pneumonia. There was emphysematous changes bilaterally. She also had severe degenerative disc disease. For now patient is on a combination of bronchodilators and steroids. She is on a BiPAP at a pressure of 10/5 cm of water with an FiO2 of 30%. She is also covered with Zithromax as an empiric antibiotic coverage. Outpatient indication of been ordered resume. Review of Systems Constitutional Constitutional: no fever, no night sweats, no significant weight loss, no exercise intolerance, weight gain (22lbs) and now she her weight is stable for now. Eyes Eyes: no dry eyes, no vision change, no irritation ENMT Ears: no difficulty hearing, no ear pain Nose: no frequent nosebleeds, no nose problems, no sinus problems Mouth/Throat: no sore throat, no bleeding gums, no snoring, no mouth ulcers, no teeth problems, dry mouth Cardiovascular Cardiovascular: no chest pain, no arm pain on exertion, no shortness of breath when lying down, no palpitations, no known heart murmur, shortness of breath when walking Respiratory Respiratory: Increased shortness of breath Gastrointestinal Gastrointestinal: no abdominal pain, no nausea, no vomiting, no constipation, normal appetite, no diarrhea, not vomiting blood, no dyspepsia, no GERD Genitourinary Genitourinary: no incontinence, no difficulty urinating, no hematuria, no increased frequency Musculoskeletal Musculoskeletal: no muscle aches, no muscle weakness, no arthralgias/joint pain, no back pain, no swelling in the extremities Integumentary Skin: no abnormal mole, no jaundice, no rashes, no laceration Neurologic Neurologic: no loss of consciousness, no weakness, no numbness, no seizures, no dizziness, no migraines, no headaches, no tremor Psychiatric Psych: no depression, no sleep disturbances, feeling safe in a relationship, no alcohol abuse, no anxiety, no hallucinations, no suicidal thoughts Endocrine Endocrine: fatigue Hematologic/Lymphatic Hematologic/Lymphatic no swollen glands, no bruising, no excessive bleeding Allergic/Immunologic Allergy/Immunologic: no runny nose, no sinus pressure, no itching, no hives, no frequent sneezing Screening Past Medical History Past Medical History: COPD, Diabetes Mellitus Additional Past Medical History / Comment(s): DM type II per chart, but pt currently denies, "confusion" when CO2 increased per son, herniated disc, neck pain History of Any Multi-Drug Resistant Organisms: None Reported Additional Past Surgical History / Comment(s): "abdominal surgeries colectomy with diverting colostomy and subsequent reversal. The patient has a large anterior abdominal wall incision for now., Past Psychological History: Anxiety Smoking Status: Never smoker Past Alcohol Use History: None Reported Past Drug Use History: None Reported - Past Family History Family Family Medical History: No Reported History Medications and Allergies Home Medications Medication Instructions Recorded Confirmed Type Albuterol Nebulized [Ventolin 2.5 mg INHALATION RT-Q4H PRN 01/12/20 01/12/20 History Nebulized] Albuterol Sulfate [Ventolin HFA] 2 puff INHALATION RT-QID PRN 01/12/20 01/12/20 History Aspirin EC [Ecotrin Low Dose] 81 mg PO DAILY 01/12/20 01/12/20 History Atenolol [Tenormin] 25 mg PO BID 01/12/20 01/12/20 History Budesonide [Pulmicort Flexhaler] 1 puff INHALATION RT-BID 01/12/20 01/12/20 History Diclofenac Sodium [Voltaren Gel] 1 applic TOPICAL DAILY PRN 01/12/20 01/12/20 History Diltiazem HCl [Diltiazem HCl 24Hr 240 mg PO DAILY 01/12/20 01/12/20 History ER (Cd)] Escitalopram [Lexapro] 20 mg PO DAILY 01/12/20 01/12/20 History Fluticasone Nasal [place] [Flonase 1 spray EA NOSTRIL BID PRN 01/12/20 01/12/20 History Nasal Ro[place]] HYDROcodone/APAP 10-325MG [Vona 1 tab PO TID PRN 01/12/20 01/12/20 History 10-325] Ipratropium-Albuterol Nebulize 3 ml INHALATION RT-QID PRN 01/12/20 01/12/20 History [Duoneb 0.5 mg-3 mg/3 ml Soln] LORazepam [Ativan] 0.25 mg PO TID PRN 01/12/20 01/12/20 History Linaclotide [Linzess] 72 mcg PO DAILY 01/12/20 01/12/20 History Montelukast [Singulair] 10 mg PO HS 01/12/20 01/12/20 History Ondansetron Odt [Zofran Odt] 4 mg PO DAILY 01/12/20 01/12/20 History Pantoprazole Sodium [Protonix] 40 mg PO DAILY 01/12/20 01/12/20 History Polyethylene Glycol 3350 [Miralax] 17 gm PO DAILY 01/12/20 01/12/20 History Umeclidinium [place] [Incruse 2 puff INHALATION RT-DAILY 01/12/20 01/12/20 History Ellipta] glipiZIDE XL [Glucotrol Xl] 2.5 mg PO DAILY 01/12/20 01/12/20 History metFORMIN HCL [Glucophage] 500 mg PO TID 01/12/20 01/12/20 History predniSONE 10 mg PO DAILY 01/12/20 01/12/20 History Allergies Allergy/AdvReac Type Severity Reaction Status Date / Time No Known Allergies Allergy Verified 01/12/20 15:47 Physical Exam Vitals: Vital Signs Temp Pulse Pulse Resp BP BP Pulse Ox 01/13/20 12:46 85 18 01/13/20 12:44 98.0 F 85 18 132/63 99 01/13/20 12:35 80 01/13/20 12:25 78 01/13/20 11:34 98.1 F 85 20 129/71 99 01/13/20 09:05 88 01/13/20 08:55 80 01/13/20 08:00 95 14 01/13/20 07:42 97.9 F 95 14 147/81 98 01/13/20 05:00 97.7 F 91 16 157/83 99 01/13/20 04:45 83 01/13/20 04:36 83 01/13/20 00:00 18 01/12/20 20:44 89 01/12/20 20:31 98 F 90 18 140/65 95 01/12/20 20:30 89 94 L 01/12/20 19:07 101 H 24 146/98 98 01/12/20 16:42 100 01/12/20 16:31 100 01/12/20 15:16 116 H 22 158/81 98 01/12/20 13:36 114 H 28 H 151/88 98 Intake and Output 01/12/20 01/13/20 01/13/20 22:59 06:59 14:59 Intake Total 300 660 Balance 300 660 Intake: Intake, IV Titration 300 600 Amount Sodium Chloride 0.9% 1, 300 600 000 ml @ 75 mls/hr IV . [id number] STA Rx#:[id number] Oral 0 60 Other: Voiding Method Bedside Commode Bedside Commode # Voids 1 2 General Appearance no diaphoresis, no respiratory distress, speech not interrupted by breaths, no dyspnea, no pallor, not cachectic, well nourished, appears well, obesity the patient is currently wearing a BiPAP at a fullface mask and she is quite synchronous with the mechanical ventilator. She is having some difficulties is taken out. This is. She is having some limited shortness of breath. HEENT no pursed lip breathing, no jugular venous distention, no mucous membrane cyanosis, no perioral cyanosis, mallampati classification: class 1, (cushingoid features related to steroids) Chest no retractions, no sternocleidomastoid muscle contractions, no supraclavicular retractions, no intercostal retractions, no decreased air movement, no rhonchi, no hyperinflation, (normal) adventitious sounds: rales / crackles: bilaterally: midlung jaurez, barrel chest, prolonged expiratory wheezing, decreased air movement Heart no right ventricular heave, no distant heart sounds, no s3 gallop, (normal) jugular vein: jugular venous distention: by 0cm, (normal) jugular vein GI bowel sounds: hyperactive (borborygmi), bowel sounds: diminished or absent, the patient is an incision over the mid anterior abdominal wall related to previous diverticular surgery and diverting colostomy with subsequent reversal. Extremities no cyanosis, no clubbing, no edema Neurologic no decreased mental status, no somnolence, no confusion Assisstive Devices: ambulates with no assitive devices Gait and Mobility: gait WNL, full weight bearing Skin General Appearance normal, (normal) normal except as noted Results - Laboratory Findings CBC and BMP: 01/13/20 09:08 01/13/20 09:08 PT/INR, D-dimer PT 10.2 sec (9.0-12.0) 01/12/20 11:07 INR 1.0 (<1.2) 01/12/20 11:07 Abnormal lab findings: Abnormal Labs 01/12/20 01/12/20 01/12/20 11:07 11:07 11:07 WBC RBC 3.24 L Hgb 10.1 L Hct 33.9 L MCV 104.7 H MCHC 29.9 L Lymphocytes # Lymphocytes # (Manual) 0.78 L VBG pCO2 VBG HCO3 Chloride 92 L Carbon Dioxide 38 H Creatinine 0.35 L Glucose 118 H POC Glucose (mg/dL) Total Protein 6.0 L RBC Folate 942 H 01/12/20 01/12/20 01/12/20 12:06 17:19 20:11 WBC RBC Hgb Hct MCV MCHC Lymphocytes # Lymphocytes # (Manual) VBG pCO2 63 H VBG HCO3 39 H Chloride Carbon Dioxide Creatinine Glucose POC Glucose (mg/dL) 144 H 191 H Total Protein RBC Folate 01/13/20 01/13/20 01/13/20 06:58 09:08 09:08 WBC 3.3 L RBC 3.20 L Hgb 10.3 L Hct 32.6 L MCV 101.9 H MCHC Lymphocytes # 0.3 L Lymphocytes # (Manual) VBG pCO2 VBG HCO3 Chloride 94 L Carbon Dioxide 35 H Creatinine 0.35 L Glucose 186 H POC Glucose (mg/dL) 177 H Total Protein RBC Folate 01/13/20 11:07 WBC RBC Hgb Hct MCV MCHC Lymphocytes # Lymphocytes # (Manual) VBG pCO2 VBG HCO3 Chloride Carbon Dioxide Creatinine Glucose POC Glucose (mg/dL) 151 H Total Protein RBC Folate - Diagnostic Findings Chest x-ray: image reviewed Assessment and Plan Plan: 1 acute COPD exacerbation, with secondary shortness of breath. The patient currently on BiPAP at a pressure of 10/5 with an FiO2 of 30%. She is on examination bronchodilators, steroids and empiric antibiotic coverage with Zithromax. No evidence of pneumonia on today's chest x-ray. 2 severe chronic obstructive pulmonary disease- patient obviously has severe COPD. she is currently on a combination of Incruse and Pulmicort. Previous FEV1 as measures and back in 2017 was in order of 17% of predicted and the patient has chronic hypoxic respiratory failure and she is oxygen dependent. She is an ex-smoker. She has extensive smoking history. 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 5 diabetes mellitus 6 history of multiple bowel surgeries with colectomy and diverting colostomy with subsequent reversal 7 chronic hypercapnic respiratory failure with secondary metabolic alkalosis 8 chronic hypoxic respiratory failure Plan Continue DuoNeb neb last treatment [id number] IV Solu-Medrol Perforomist Pulmicort nebulized treatments twice a day Consider a home ventilator due to her recurrent COPD exacerbation and chronic hypoxic/hypercapnic respiratory failure Empiric antibiotic coverage and Zithromax We'll continue to follow.
--- NOTE | 2020-01-13 18:13 | NM ---
EXAMINATION TYPE: NM hepatobiliary w CCK DATE OF EXAM: 01/13/2020 COMPARISON: NONE HISTORY: TECHNIQUE: After the intravenous administration of 5.2 mCi Tc 99m Mebrofenin hepatobiliary scintigrap hy is performed. Immediate images post injection. FINDINGS: There is prompt uptake of the tracer by the liver that has normal size. Liver has a somewhat lobulate d appearance. There is no evidence of a defect within the liver. There is prompt uptake by the gallbl adder at 15 minutes. There is tracer in the small bowel at 60 minutes. The patient was injected with the 1 mcg of Kinevac and additional images obtained. The gallbladder ej ection fraction is 92%. IMPRESSION: Normal hepatobiliary scan. Normal gallbladder ejection fraction.
[2020-01-13 18:14] LABS: Glucose,Whole Blood 175 mg/dL (75-99)
[2020-01-13] MEDS: CYANOCOBALAMIN 1,000 MCG/ML 1 ML VIAL IM SCH (18:22)
[2020-01-13] MEDS: BUDESONIDE 1 MG/2 ML NEBU INHALATION SCH (19:10)
[2020-01-13] MEDS: FORMOTEROL FUMARATE 20 MCG/2 ML NEBU INHALATION SCH (19:12)
[2020-01-13 19:56] LABS: Glucose,Whole Blood 160 mg/dL (75-99)
[2020-01-13] MEDS: MONTELUKAST 10 MG TAB PO SCH (20:19)
--- NOTE | 2020-01-13 20:51 | CONS ---
CONSULTATION DATE OF DICTATION: 01/13/2020 REASON FOR CONSULT: Epigastric pain. HISTORY OF PRESENT ILLNESS: The patient is a 59-year-old pleasant white female with advanced COPD, on home oxygen, admitted to the hospital because of worsening shortness of breath for the last few weeks' duration. The reason we are consulted is because of persistent epigastric and upper abdominal pain for the last 3 years' duration. The patient is known to me from office visits. She has been complaining of severe upper abdominal pain, more like a tightness, and cannot breathe, for the last 2 years' duration. She has been extensively investigated on an outpatient basis by me. She had multiple upper endoscopies, a gastric emptying scan, small bowel series, ultrasound of the gallbladder, CT of the abdomen over the course of the last 6 months, which were all negative. In fact, her last upper endoscopy was only a month ago at [facility], that showed mild gastritis. She was treated with various proton pump inhibitors, antispasmodics, with no relief. PAST MEDICAL HISTORY: Her past medical history is significant for COPD, on home oxygen, diabetes mellitus, hypercholesterolemia, chronic constipation, degenerative joint disease. MEDICATIONS: Medications at home: Albuterol, Ecotrin, Tenormin, Pulmicort, Voltaren, Lexapro, Linzess, DuoNeb, Ativan, Singulair, Zofran, Protonix, MiraLAX, Ellipta, Glucotrol, Glucophage and prednisone. ALLERGIES: NONE. SOCIAL HISTORY: No smoking. No alcohol use. FAMILY HISTORY: Unremarkable. REVIEW OF SYSTEMS: CARDIOPULMONARY: Complains of severe shortness of breath. GENITOURINARY: No dysuria or hematuria. MUSCULOSKELETAL: Unremarkable. SKIN: Unremarkable. ENDOCRINE: Unremarkable. PSYCHIATRIC: Anxiety, depression. NEUROLOGY: Unremarkable. ENT/VISION: Unremarkable. CONSTITUTIONAL: No weight loss. No fever, chills, night sweats. PHYSICAL EXAMINATION: She appears somewhat in distress because of shortness of breath. VITAL SIGNS: Blood pressure 132/63, pulse rate 85, temperature 98. HEENT examination unremarkable. Conjunctivae pink. Sclerae anicteric. Oral cavity no lesions. NECK: No JVD or lymph node enlargement. CHEST: Decreased breath sounds bilaterally. HEART: Regular rate and rhythm. ABDOMEN: Soft. Bowel sounds are positive. EXTREMITIES: No pedal edema. SKIN: No rashes. NEUROLOGIC: Alert and oriented x3. No focal deficits. LABS: Labs from today show WBC 3.3, hemoglobin 10.3, platelets normal. Basic metabolic panel is within normal limits except CO2 is 35. IMPRESSION: 1. Chronic epigastric pain for the last 2 years' duration. Extensive investigations on an outpatient basis, including an EGD, ultrasound of the abdomen, CT of the abdomen, small bowel series, all negative. It is likely her upper abdominal pain could be related to excessive use of accessory muscles from advanced COPD. 2. Advanced chronic obstructive pulmonary disease, on home oxygen and presently on BiPAP. 3. History of hypertension and hyperlipidemia. 4. Chronic constipation. RECOMMENDATIONS: 1. Will obtain HIDA scan during this hospitalization. 2. Continue with Protonix 40 mg twice daily. 3. Regular diet. 4. Further recommendations will follow based on the HIDA scan results. Thank you for this consultation. MMODL / DHEERAJN: [id number] /
[2020-01-14] MEDS: HYDROcodone/APAP 10-325MG 1 EACH TAB PO PRN ×2 (04:09→16:28)
[2020-01-14] MEDS: methylPREDNISolone SOD SUCCI 125 MG/2 ML VIAL IV SCH ×2 (05:07→08:58)
[2020-01-14 07:05] LABS: Glucose,Whole Blood 149 mg/dL (75-99)
[2020-01-14] MEDS: FORMOTEROL FUMARATE 20 MCG/2 ML NEBU INHALATION SCH ×2 (07:32→19:48)
[2020-01-14] MEDS: IPRATROPIUM-ALBUTEROL 3 ML NEB INHALATION PRN ×2 (07:32→19:48)
[2020-01-14] MEDS: BUDESONIDE 1 MG/2 ML NEBU INHALATION SCH ×2 (07:32→19:48)
[2020-01-14] MEDS: IPRATROPIUM 0.5 MG/2.5 ML NEBU INHALATION SCH ×4 (07:36→19:52)
[2020-01-14] MEDS: PANTOPRAZOLE 40 MG TABLET PO SCH ×2 (08:58→16:28)
[2020-01-14] MEDS: ATENOLOL 25 MG TAB PO SCH ×2 (08:58→21:14)
[2020-01-14] MEDS: LORazepam 0.5 MG TAB PO PRN (08:59)
[2020-01-14] MEDS: INSULIN ASPART (NovoLOG) 100 UNIT/ML VIAL SQ SCH ×4 (08:59→21:14)
[2020-01-14] MEDS: HEPARIN SODIUM,PORCINE 5,000 UNIT/ML 1 ML VIAL SQ SCH ×3 (08:59→23:16)
[2020-01-14] MEDS: DILTIAZEM CD 240 MG CAP.ER.24H PO SCH (09:00)
[2020-01-14] MEDS: POLYETHYLENE GLYCOL 3350 17 GM POWD.PACK PO SCH (09:00)
[2020-01-14] MEDS: LINACLOTIDE 72 MCG PO SCH (09:00)
[2020-01-14] MEDS: ESCITALOPRAM 20 MG TAB PO SCH (09:00)
[2020-01-14] MEDS: AZITHROMYCIN 250 MG TAB PO SCH (09:00)
[2020-01-14 11:24] LABS: Glucose,Whole Blood 169 mg/dL (75-99)
--- NOTE | 2020-01-14 12:48 | P.PN ---
Subjective Progress Note Date: 01/14/20 59-year-old female patient is well-known to me. I taking care of her in the past. She has moved from [place] to [place] and she was hospitalized for COPD exacerbation back in 2018.. She is a known case of COPD and she has chronic hypoxic respiratory failure. She has had multiple hospitalizations in the past for COPD exacerbation and she can recall at least hospitalization over the past several years. She has required steroids due to her chronic steroid use she has developed steroids induced cushingoid features. She has been on on long-term steroid use and she was taking 5 mg of by mouth steroids on a daily basis. She has been maintained on DuoNeb neb last treatment [id number] an d typically she uses it up to 4 times a day. She is also on oxygen and she also has a Incruse modulation day and Pulmicort and inhalers 1 puff twice a day. Her previous spirometer was on a comptometrist office from 2016 from [place] showed an FEV1 of 19% of predicted. The patient is not smoking cigarettes for now. She quit smoking in 2012. She is diabetic. The patient came into the hospital yesterday for a few days worth of increased shortness of breath. She stated that inhalers and a nebulizer were not helping. She was Hospital as for increased shortness of breath. Apparently she denies having any fever or chills. She denied having any sick contacts. She has been exposed to secondhand smoking through other people will live with her. The patient came into the ED. Chest x-ray showed emphysema without any acute airspace disease. ABGs showed a pH of 7.41 with a pCO2 of 63 and pO2 of 39. I think this was a venous sample. Her white cell, was at 3.3 with a hemoglobin of 10.3. Normal coagulation profile. The blood work showed metabolic alkalosis consistent with chronic hypercapnic respiratory failure. The last CAT scan of the chest was done in April 2019. The patient back then showed diffuse emphysematous change and numerous subcentimeter bilateral pulmonary nodules with calcification and this was attributed to her previous chickenpox pneumonia. There was emphysematous changes bilaterally. She also had severe degenerative disc disease. For now patient is on a combination of bronchodilators and steroids. She is on a BiPAP at a pressure of 10/5 cm of water with an FiO2 of 30%. She is also covered with Zithromax as an empiric antibiotic coverage. Outpatient indication of been ordered resume. On today's evaluation of 01/14/2020 the patient is feeling better. She is less short of breath. She was given BiPAP throughout the night and currently she is on 4 L of oxygen by nasal cannula. Her speech is improved. She is not struggling to breathe. She is able to speak Full sentences. No chest pain. She is an ex-smoker and she quit smoking in 2012. She has chronic hypoxic and hypercapnic respiratory failure. No other new issues for now. No altered mentation. She remains on IV Solu-Medrol. She remains on a combination of Perforomist and Pulmicort neb last 2 minutes twice a day. She is on Zithromax. Objective - Vital Signs Vital signs: Vital Signs Temp 98.2 F 01/14/20 12:07 Pulse 78 01/14/20 12:07 Resp 20 01/14/20 12:07 BP 130/75 01/14/20 12:07 Pulse Ox 99 01/14/20 12:07 Intake & Output 01/13/20 01/14/20 01/14/20 18:59 06:59 18:59 Intake Total 600 Balance 600 Intake: Intake, IV Titration 600 Amount Sodium Chloride 0.9% 1, 600 000 ml @ 75 mls/hr IV . [id number] STA Rx#:[id number] Other: Voiding Method Bedside Commode Bedside Commode Bedside Commode # Voids 2 1 - Exam General Appearance no diaphoresis, no respiratory distress, speech not interrupted by breaths, no dyspnea, no pallor, not cachectic, well nourished, appears well, obesity the patient is 4 L of oxygen by nasal cannula. She is having some limited shortness of breath. Her pulse ox is noted of 99%. She is not using accessory muscles of breathing. HEENT no pursed lip breathing, no jugular venous distention, no mucous membrane cyanosis, no perioral cyanosis, mallampati classification: class 1, (cushingoid features related to steroids) Chest no retractions, no sternocleidomastoid muscle contractions, no supraclavicular retractions, no intercostal retractions, no decreased air movement, no rhonchi, no hyperinflation, (normal) adventitious sounds: rales / crackles: bilaterally: midlung juarez, barrel chest, prolonged expiratory wheezing, decreased air movement Heart no right ventricular heave, no distant heart sounds, no s3 gallop, (normal) jugular vein: jugular venous distention: by 0cm, (normal) jugular vein GI bowel sounds: hyperactive (borborygmi), bowel sounds: diminished or absent, the patient is an incision over the mid anterior abdominal wall related to previous diverticular surgery and diverting colostomy with subsequent reversal. Extremities no cyanosis, no clubbing, no edema Neurologic no decreased mental status, no somnolence, no confusion Assisstive Devices: ambulates with no assitive devices Gait and Mobility: gait WNL, full weight bearing Skin General Appearance normal, (normal) normal except as noted - Labs CBC & Chem 7: 01/13/20 09:08 01/13/20 09:08 Labs: Abnormal Lab Results - Last 24 Hours (Table) 01/13/20 01/13/20 01/14/20 Range/Units 18:12 19:54 07:04 POC Glucose (mg/dL) 175 H 160 H 149 H (75-99) mg/dL 01/14/20 Range/Units 11:23 POC Glucose (mg/dL) 169 H (75-99) mg/dL Microbiology - Last 24 Hours (Table) 01/12/20 15:05 Blood Culture - Preliminary Blood No Growth after 24 hours Assessment and Plan Plan: 1 acute COPD exacerbation, with secondary shortness of breath. The patient was optimized with a combination of bronchodilators and steroids and antibiotics and BiPAP for respiratory support and currently she is on 40 selection by nasal cannula. She is feeling better. 2 severe chronic obstructive pulmonary disease- patient obviously has severe COPD. she is currently on a combination of Incruse and Pulmicort. Previous FEV1 as measures and back in 2017 was in order of 17% of predicted and the patient has chronic hypoxic respiratory failure and she is oxygen dependent. She is an ex-smoker. She has extensive smoking history. 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 5 diabetes mellitus 6 history of multiple bowel surgeries with colectomy and diverting colostomy with subsequent reversal 7 chronic hypercapnic respiratory failure with secondary metabolic alkalosis 8 chronic hypoxic respiratory failure Plan Continue [facility] last treatment [id number] IV Solu-Medrol Perforomist Pulmicort nebulized treatments twice a day Consider a home ventilator due to her recurrent COPD exacerbation and chronic hypoxic/hypercapnic respiratory failure Empiric antibiotic coverage and Zithromax We'll continue using BiPAP on and off during the day for any shortness of breath. Would suggest continuing using it at nighttime. Currently on 4 L of oxygen by nasal cannula HIDA scan was noted and it was within normal limits We'll continue to follow. .
[2020-01-14] MEDS: CYANOCOBALAMIN 1,000 MCG/ML 1 ML VIAL IM SCH (13:17)
--- NOTE | 2020-01-14 14:54 | P.PN ---
Subjective Progress Note Date: 01/14/20 Principal diagnosis: follow up for acute COPD exacerbation Patient seen and examined she feels her breathing is finally improving , denies any chest pain , tolerating PO intake Objective - Vital Signs Vital signs: Vital Signs Temp 98.2 F 01/14/20 12:07 Pulse 78 01/14/20 12:07 Resp 20 01/14/20 12:07 BP 130/75 01/14/20 12:07 Pulse Ox 99 01/14/20 12:07 Intake & Output 01/13/20 01/14/20 01/14/20 18:59 06:59 18:59 Intake Total 600 Balance 600 Intake: Intake, IV Titration 600 Amount Sodium Chloride 0.9% 1, 600 000 ml @ 75 mls/hr IV . [id number] STA Rx#:[id number] Other: Voiding Method Bedside Commode Bedside Commode Bedside Commode # Voids 2 1 - Exam Constitutional: vital signs stable, Not in acute distress, pleasant, conversant Lungs: Diminished breath sounds throughout however slight improvement compared to yesterday , not using accessory muscles of respiration Cardiovascular: Regular rate and rhythm, no murmurs, no gallops, no rubs, no peripheral edema Gastrointestinal: Soft, no tenderness to palpation, bowel sounds positive Extremities: No digital cyanosis or clubbing, peripheral pulses palpable and equal , no calf muscle tenderness Psych: Alert, oriented to place, person and time, appropriate affect, intact judgment - Labs CBC & Chem 7: 01/13/20 09:08 01/13/20 09:08 Labs: Abnormal Lab Results - Last 24 Hours (Table) 01/13/20 01/13/20 01/14/20 Range/Units 18:12 19:54 07:04 POC Glucose (mg/dL) 175 H 160 H 149 H (75-99) mg/dL 01/14/20 Range/Units 11:23 POC Glucose (mg/dL) 169 H (75-99) mg/dL Microbiology - Last 24 Hours (Table) 01/12/20 15:05 Blood Culture - Preliminary Blood No Growth after 24 hours Assessment and Plan Assessment: 59-year-old female with COPD on home oxygen 2-4 L comes in due to worsening shortness of breath over the past 1-2 days denies any upper respiratory infection like symptoms. In the ED she was found to be hypoxic and tachycardic despite repeated breathing treatments patient didn't make much improvement she is admitted for acute COPD exacerbation 01/13 Patient still having respiratory distress slightly improving with breathing treatments she feels tight Denies any fevers or chills Denies any nausea vomiting or chest pain 01/14 today she is showing some improvement in her breathing pulmonary planning on arranging for her to get trilogy discharge planning in AM hepatobilliary scan wnl Plan: Acute hypoxic hypercapnic respiratory failure secondary to acute COPD exacerbation, improving COPD pathway systemic steroids, doxycycline, nebulizers inhalers when necessary CPT supplemental oxygen as needed influenza negative BIpap PRN 08/29 switch to PO prednisone epigastric abd pain PPI maalox lipase normal GI consult hida scan wnl DVT PPX sc heparin tid chronic anemia macrocytic low normal vitamin B12 level replace with IM vitamin b12 pulmonary recommending trilogy ventilator at home discharge planning in AM
[2020-01-14] MEDS: predniSONE 20 MG TAB PO SCH (16:25)
[2020-01-14 16:49] LABS: Glucose,Whole Blood 246 mg/dL (75-99)
--- NOTE | 2020-01-14 18:33 | PN ---
PROGRESS NOTE DATE OF SERVICE: 01/14/2020 The patient is a 59-year-old white female admitted to the hospital with exacerbation of chronic obstructive pulmonary disease/pneumonia, being followed by Dr. Agustin. She has been complaining of upper abdominal pain for the last two years duration. She had extensive workup as an outpatient which was negative. She was scheduled for a HIDA scan yesterday, which was also reported as normal. In the meantime, she is feeling somewhat better. She remains on Protonix 40 mg twice daily. Her oral intake has been improving. No nausea or vomiting. She still has some epigastric discomfort. PHYSICAL EXAMINATION: She appears comfortable. No apparent distress. VITAL SIGNS: Stable. Blood pressure is 130/75, heart rate 78, temperature 98.2. HEENT: Examination unremarkable. Conjunctivae pink. Sclerae anicteric. Oral cavity, no lesions. NECK: No JVD or lymph node enlargement. CHEST: Clear to auscultation except for decreased breath sounds bilaterally. ABDOMEN: Bowel sounds are positive. No organomegaly. EXTREMITIES: No pedal edema. NEUROLOGIC: She is alert and oriented x3. No focal deficits. LABS: Include WBC 3.3, hemoglobin 10.3, platelets normal. Basic metabolic panel is within normal limits. IMPRESSION: 1. Upper abdominal pain, presently on Protonix 40 mg twice daily, doing better. Extensive workup over the last six months was all negative. Recent HIDA scan was also negative. 2. Exacerbation of chronic obstructive pulmonary disease/pneumonia, on antibiotics, doing better. RECOMMENDATIONS: 1. Continue with Protonix 40 twice daily. 2. Small frequent meals. 3. Will sign off. Please call as needed. Thank you for this consultation. MMODL / IJN: [id number] /
[2020-01-14 20:09] LABS: Glucose,Whole Blood 208 mg/dL (75-99)
[2020-01-14] MEDS: MONTELUKAST 10 MG TAB PO SCH (21:14)
[2020-01-15] MEDS: HYDROcodone/APAP 10-325MG 1 EACH TAB PO PRN ×3 (00:31→16:45)
[2020-01-15 07:07] LABS: Glucose,Whole Blood 119 mg/dL (75-99)
[2020-01-15] MEDS: INSULIN ASPART (NovoLOG) 100 UNIT/ML VIAL SQ SCH ×2 (07:10→12:06)
[2020-01-15] MEDS: PANTOPRAZOLE 40 MG TABLET PO SCH (07:28)
[2020-01-15] MEDS: HEPARIN SODIUM,PORCINE 5,000 UNIT/ML 1 ML VIAL SQ SCH ×2 (07:28→14:27)
[2020-01-15] MEDS: BUDESONIDE 1 MG/2 ML NEBU INHALATION SCH ×2 (07:34→16:30)
[2020-01-15] MEDS: IPRATROPIUM-ALBUTEROL 3 ML NEB INHALATION PRN ×2 (07:34→11:30)
[2020-01-15] MEDS: FORMOTEROL FUMARATE 20 MCG/2 ML NEBU INHALATION SCH ×2 (07:34→16:30)
[2020-01-15] MEDS: IPRATROPIUM 0.5 MG/2.5 ML NEBU INHALATION SCH ×3 (07:35→16:30)
[2020-01-15] MEDS: DILTIAZEM CD 240 MG CAP.ER.24H PO SCH (08:34)
[2020-01-15] MEDS: ESCITALOPRAM 20 MG TAB PO SCH (08:34)
[2020-01-15] MEDS: AZITHROMYCIN 250 MG TAB PO SCH (08:34)
[2020-01-15] MEDS: predniSONE 20 MG TAB PO SCH (08:34)
[2020-01-15] MEDS: POLYETHYLENE GLYCOL 3350 17 GM POWD.PACK PO SCH (08:34)
[2020-01-15] MEDS: CYANOCOBALAMIN 1,000 MCG/ML 1 ML VIAL IM SCH (08:35)
[2020-01-15] MEDS: ATENOLOL 25 MG TAB PO SCH (08:35)
[2020-01-15] MEDS: LINACLOTIDE 72 MCG PO SCH (08:47)
--- NOTE | 2020-01-15 11:08 | P.DS ---
Providers Date of admission: 01/12/20 13:31 Attending physician: Leyla Arroyo MD Consults: 01/13/20 10:07 Consult Physician Routine Consulting Provider: Suzie Agustin Consult Reason/Comments: copd Do you want consulting provider notified?: Yes Primary care physician: Khanh Caban MD Hospital Course: final diagnosis at discharge Acute hypoxic hypercapnic respiratory failure secondary to acute COPD exacerbation, end stage severe COPD chronic hypoxic respiratory failure on 4 LPM irritable bowel syndrome chronic macrocytic anemia hospital course 59-year-old female with COPD on home oxygen 2-4 L comes in due to worsening shortness of breath over the past 1-2 days denies any upper respiratory infection like symptoms. In the ED she was found to be hypoxic and tachycardic despite repeated breathing treatments patient didn't make much improvement she is admitted for acute COPD exacerbation 01/13 Patient still having respiratory distress slightly improving with breathing treatments she feels tight Denies any fevers or chills Denies any nausea vomiting or chest pain 01/14 today she is showing some improvement in her breathing pulmonary planning on arranging for her to get trilogy discharge planning in hepatobilliary scan [facility] 01/15 patient seen and examined on day of discharge ambulatory Oxygen sat maintained above 91% with 6 min walk while on 4 LPM tolerated excercise well no new complaints , no chest pain , no trouble breathing Constitutional: vital signs stable, Not in acute distress, pleasant, conversant Lungs: Diminished breath sounds throughout no wheezing rhonchi or rales, not using accessory muscles of respiration Cardiovascular: Regular rate and rhythm, no murmurs, no gallops, no rubs, no peripheral edema Extremities: no calf muscle tenderness Psych: Alert, oriented to place, person and time, appropriate affect, intact judgment follow up with pulmonary , who recommended getting a ventilator , patient currently has bipap follow up with PCP discharge in stable condition tapering dose of prednisone 40 minutes were spent discharging this patient, and more than 50% of the time was spent in counseling the patient and family and in coordinating care. Patient Condition at Discharge: Stable Plan - Discharge Summary New Discharge Prescriptions: No Action Albuterol Nebulized [Ventolin Nebulized] 2.5 mg INHALATION RT-Q4H PRN PRN Reason: Shortness Of Breath Ipratropium-Albuterol Nebulize [Duoneb 0.5 mg-3 mg/3 ml Soln] 3 ml INHALATION RT-QID PRN PRN Reason: Shortness Of Breath Budesonide [Pulmicort Flexhaler] 1 puff INHALATION RT-BID Albuterol Sulfate [Ventolin HFA] 2 puff INHALATION RT-QID PRN PRN Reason: Shortness Of Breath Umeclidinium Brave [Incruse Ellipta] 2 puff INHALATION RT-DAILY Polyethylene Glycol 3350 [Miralax] 17 gm PO DAILY Linaclotide [Linzess] 72 mcg PO DAILY LORazepam [Ativan] 0.25 mg PO TID PRN PRN Reason: Anxiety Fluticasone Nasal [place] [Flonase Nasal [place]] 1 spray EA NOSTRIL BID PRN PRN Reason: Allergy Symptoms Escitalopram [Lexapro] 20 mg PO DAILY predniSONE 10 mg PO DAILY Pantoprazole Sodium [Protonix] 40 mg PO DAILY Montelukast [Singulair] 10 mg PO HS Atenolol [Tenormin] 25 mg PO BID Aspirin EC [Ecotrin Low Dose] 81 mg PO DAILY metFORMIN HCL [Glucophage] 500 mg PO TID glipiZIDE XL [Glucotrol Xl] 2.5 mg PO DAILY Diltiazem HCl [Diltiazem HCl 24Hr ER (Cd)] 240 mg PO DAILY Ondansetron Odt [Zofran Odt] 4 mg PO DAILY Diclofenac Sodium [Voltaren Gel] 1 applic TOPICAL DAILY PRN PRN Reason: Pain HYDROcodone/APAP 10-325MG [[facility] 10-325] 1 tab PO TID PRN PRN Reason: Pain Discharge Medication List Albuterol Nebulized [Ventolin Nebulized] 2.5 mg INHALATION RT-Q4H PRN 01/12/20 [History] Albuterol Sulfate [Ventolin HFA] 2 puff INHALATION RT-QID PRN 01/12/20 [History] Aspirin EC [Ecotrin Low Dose] 81 mg PO DAILY 01/12/20 [History] Atenolol [Tenormin] 25 mg PO BID 01/12/20 [History] Budesonide [Pulmicort Flexhaler] 1 puff INHALATION RT-BID 01/12/20 [History] Diclofenac Sodium [Voltaren Gel] 1 applic TOPICAL DAILY PRN 01/12/20 [History] Escitalopram [Lexapro] 20 mg PO DAILY 01/12/20 [History] Fluticasone Nasal [place] [Flonase Nasal [place]] 1 spray EA NOSTRIL BID PRN 01/12/20 [History] HYDROcodone/APAP 10-325MG [[facility] 10-325] 1 tab PO TID PRN 01/12/20 [History] Ipratropium-Albuterol Nebulize [Duoneb 0.5 mg-3 mg/3 ml Soln] 3 ml INHALATION RT-QID PRN 01/12/20 [History] LORazepam [Ativan] 0.25 mg PO TID PRN 01/12/20 [History] Montelukast [Singulair] 10 mg PO HS 01/12/20 [History] Ondansetron Odt [Zofran Odt] 4 mg PO DAILY 01/12/20 [History] Pantoprazole Sodium [Protonix] 40 mg PO DAILY 01/12/20 [History] Polyethylene Glycol 3350 [Miralax] 17 gm PO DAILY 01/12/20 [History] Umeclidinium Brave [Incruse Ellipta] 2 puff INHALATION RT-DAILY 01/12/20 [History] glipiZIDE XL [Glucotrol Xl] 2.5 mg PO DAILY 01/12/20 [History] metFORMIN HCL [Glucophage] 500 mg PO TID 01/12/20 [History] Diltiazem HCl [Diltiazem HCl 24Hr ER (Cd)] 360 mg PO DAILY #0 01/15/20 [Rx] Formoterol Fumarate [Perforomist] 20 mcg INHALATION RT-BID #60 nebu 01/15/20 [Rx] Linaclotide [Linzess] 290 mcg PO DAILY #14 capsule 01/15/20 [Rx] predniSONE See Taper PO DAILY #30 tab 01/15/20 [Rx] Follow up Appointment(s)/Referral(s): Khanh Caban MD [Primary Care Provider] - 1-2 days Suzie Agustin MD [STAFF PHYSICIAN] - 1 Week Patient Instructions/Handouts: COPD (Chronic Obstructive Pulmonary Disease) (DC), How Your Lungs Work (DC), Chronic Lung Disease and Infection Prevention (DC), Pulmonary Rehabilitation (DC), Energy Conservation Techniques (ED) Activity/Diet/Wound Care/Special Instructions: PT SON IS REQUESTING THAT THE HOSPITAL NOT MAKE FOLLOW UP DR SMITH FOR HIS MOM - HE STATED THAT HE WILL DO IT JUST LET HIM KNOW WHEN AND WHO WANTS THE PT TO SEE. Discharge Disposition: HOME SELF-CARE
[2020-01-15 11:10] LABS: Glucose,Whole Blood 211 mg/dL (75-99)
[2020-01-15 11:42] VITALS: BP 130/76; PULSE 72; RESP 20; TEMP 98
--- NOTE | 2020-01-15 12:03 | P.PN ---
Subjective Progress Note Date: 01/15/20 On 01/15/2020 patient seen in follow-up on medical surgical floor. Breathing is improved, patient is tolerating ambulation, still has exertional dyspnea she overall has improved, she is on her home dose O2 at 4 L with a pulse ox of 91- 95%. Afebrile. Hemodynamically stable, lung sounds are diminished, no rhonchi, no wheezes heard. Blood cultures have been negative, no fever or chills. Patient has been transitioned to oral prednisone, she is on Zithromax, nebulized bronchodilators. Patient does have a home BiPAP device she is unsure of the settings but she has been compliant in wearing it every night at home. She is being discharged home today, with outpatient follow-up in the office. Objective - Vital Signs Vital signs: Vital Signs Temp 98 F 01/15/20 11:41 Pulse 72 01/15/20 11:41 Resp 20 01/15/20 11:41 BP 130/76 01/15/20 11:41 Pulse Ox 99 01/15/20 11:41 Intake & Output 01/14/20 01/15/20 01/15/20 18:59 06:59 18:59 Intake Total 100 590 Balance 100 590 Intake: IV 100 100 100 Oral 590 Other: Voiding Method Bedside Commode Bedside Commode Bedside Commode # Voids 1 2 - Exam GENERAL EXAM: Alert, very pleasant, 59-year-old white female, currently on 4 L of oxygen with a pulse ox of 91% wearing BiPAP support at night with pressures of 10/5 and FiO2 of 30% comfortable in no apparent distress. HEAD: Normocephalic/atraumatic. EYES: Normal reaction of pupils, equal size. Conjunctiva pink, sclera white. NOSE: Clear with pink turbinates. THROAT: No erythema or exudates. NECK: No masses, no JVD, no thyroid enlargement, no adenopathy. CHEST: No chest wall deformity. Symmetrical expansion. LUNGS: Diminished air entry with no crackles, wheeze, rhonchi or dullness. CVS: Regular rate and rhythm, normal S1 and S2, no gallops, no murmurs, no rubs ABDOMEN: Soft, nontender. No hepatosplenomegaly, normal bowel sounds, no guarding or rigidity. EXTREMITIES: No clubbing, no edema, no cyanosis, 2+ pulses and upper and lower extremities. MUSCULOSKELETAL: Muscle strength and tone normal. SPINE: No scoliosis or deformity SKIN: No rashes CENTRAL NERVOUS SYSTEM: Alert and oriented -3. No focal deficits, tone is normal in all 4 extremities. PSYCHIATRIC: Alert and oriented -3. Appropriate affect. Intact judgment and insight. - Labs CBC & Chem 7: 01/13/20 09:08 01/13/20 09:08 Labs: Abnormal Lab Results - Last 24 Hours (Table) 01/14/20 01/14/20 01/15/20 Range/Units 16:47 20:08 07:06 POC Glucose (mg/dL) 246 H 208 H 119 H (75-99) mg/dL 01/15/20 Range/Units 11:09 POC Glucose (mg/dL) 211 H (75-99) mg/dL Microbiology - Last 24 Hours (Table) 01/12/20 15:05 Blood Culture - Preliminary Blood No Growth after 48 hours Assessment and Plan Plan: Assessment: 1 acute COPD exacerbation, with secondary shortness of breath. The patient was optimized with a combination of bronchodilators and steroids and antibiotics and BiPAP for respiratory support and currently she is on 4 liters of oxygen by nasal cannula. She is feeling better. 2 severe chronic obstructive pulmonary disease- patient obviously has severe COPD. she is currently on a combination of Incruse and Pulmicort. Previous FEV1 as measures and back in 2017 was in order of 17% of predicted and the patient has chronic hypoxic respiratory failure and she is oxygen dependent. She is an ex-smoker. She has extensive smoking history. 3 history of chickenpox, with secondary pulmonary calcifications 4 skilled nursing systemic steroid user, prednisone 5 mg every day as the patient has significant side effects, cushingoid features and weight gain. 5 diabetes mellitus 6 history of multiple bowel surgeries with colectomy and diverting colostomy with subsequent reversal 7 chronic hypercapnic respiratory failure with secondary metabolic alkalosis, patient does have a BiPAP at home with settings of 12/5 and FiO2 of 30% 8 chronic hypoxic respiratory failure Plan: From pulmonary perspective patient is stable for discharge home today, she does have a BiPAP device at home with settings of 12/5 and FiO2 of 30% which she has been compliant with, patient can resume her maintenance inhalers and nebulized treatments, going home on prednisone taper she can finish outpatient course of antibiotics, follow up with Dr. Agustin in the office. Further discussion about possibility of trilogy ventilator will be done on an outpatient basis during follow-up appointment I performed a history & physical examination of the patient and discussed their management with my nurse practitioner, Nicolasa Knox. I reviewed the nurse practitioner's note and agree with the documented findings and plan of care. Lung sounds are positive for diminished breath sounds. The findings and the impression was discussed with the patient. I attest to the documentation by the nurse practitioner. Time with Patient: Less than 30
== END 2020-01-15 17:12 | disposition home or self-care (01) | DRG 190 ==
LOC: EC 10:58 → 4SSUR 13:31 → 5NMEDONC 18:59
PROVIDERS: ADMIT Internal Medicine; ATTEND Internal Medicine
PROC: 5A09457 Assistance with Respiratory Ventilation, 24-96 Consecutive Hours, Continuous Positive Airway Pressure (ICD-10-PCS; principal; 2020-01-13)
DX: J44.1 Chronic obstructive pulmonary disease with (acute) exacerbation (principal); J96.21 Acute and chronic respiratory failure with hypoxia; J96.22 Acute and chronic respiratory failure with hypercapnia; E87.3 Alkalosis; Z99.81 Dependence on supplemental oxygen; E78.00 Pure hypercholesterolemia, unspecified; D53.9 Nutritional anemia, unspecified; E11.9 Type 2 diabetes mellitus without complications; G89.29 Other chronic pain; J98.4 Other disorders of lung; E78.5 Hyperlipidemia, unspecified; F41.9 Anxiety disorder, unspecified; K29.70 Gastritis, unspecified, without bleeding; I10 Essential (primary) hypertension; K58.1 Irritable bowel syndrome with constipation; M19.90 Unspecified osteoarthritis, unspecified site; Z79.82 Long term (current) use of aspirin; Z79.52 Long term (current) use of systemic steroids; Z79.84 Long term (current) use of oral hypoglycemic drugs; Z79.899 Other long term (current) drug therapy; Z86.19 Personal history of other infectious and parasitic diseases; Z77.22 Contact with and (suspected) exposure to environmental tobacco smoke (acute) (chronic); Z87.891 Personal history of nicotine dependence; Z90.49 Acquired absence of other specified parts of digestive tract; Z98.890 Other specified postprocedural states
CPT/HCPCS: 36415; 71046; 78227; 80048; 80053; 82607; 82747; 82803; 83690; 83735; 84484; 85025; 85610; 85730; 87040; 87502; 93005; 94640; 94660; 94760; 96361; 96365; 96372; 96374; 96375; 99285